=== PATIENT | male | born 1985 | race Caucasian/White ===

== ENCOUNTER 2021-11-21 09:18 | Outpatient (CLI) | payer OTHER, SELFPAY | END 2021-11-26 09:07 | disposition home or self-care (01) | LOC: PHYS 09:19 | PROVIDERS: Family Provider Emergency Medicine; PCP Internal Medicine; Referring Provider Emergency Medicine; Visit Provider Emergency Medicine | DX: G56.02 Carpal tunnel syndrome, left upper limb (principal) | CPT/HCPCS: 95886; 95910 ==